=== PATIENT | female | born 1965 | race Caucasian/White ===

== ENCOUNTER 2021-08-10 15:47 | Emergency (ER) | payer OTHER, SELFPAY ==
--- NOTE | ~2021-08-10 | XR_ITS ---
EXAMINATION: XR finger 4th RT min 2V DATE: 08/10/2021 16:34 INDICATION: Right hand fourth digit deformity. TECHNIQUE: 4 views of right hand fourth digit were obtained. COMPARISON: None. FINDINGS: There is flexion of the fourth proximal and distal interphalangeal joints. No fracture. Ost eopenia is noted. Joint spaces are normal. IMPRESSION: 1. Flexion of fourth proximal and distal interphalangeal joints. No fracture. 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
[2021-08-10 15:55] VITALS: BP 119/83; PULSE 95; RESP 16; TEMP 36.9; O2SAT 100
--- NOTE | 2021-08-10 16:02 | ED.UPPEXIN ---
HPI - Extremity Injury (Upper) General Chief Complaint: Extremity Injury, Upper Stated Complaint: Right Finger Injury Time Seen by Provider: 08/10/21 16:10 Source: patient and RN notes reviewed Mode of arrival: ambulatory Limitations: no limitations History of Present Illness HPI narrative: 56-year-old female with history of RA presents concern with the fourth digit of the right hand. Reports the finger is in a bent position and is painful. She denies injury or trauma. Reports history of fingers dislocating . Denies intervention. MD complaint: injury to: right and finger Related Data Home Medications Medication Instructions Recorded Confirmed albuterol sulfate 2 puff INHALATION Q4-6H PRN 08/10/21 08/10/21 albuterol sulfate See Rx Instructions .ROUTE 08/10/21 08/10/21 .COMPLEX PRN amitriptyline 50 mg PO DAILY 08/10/21 08/10/21 budesonide-formoterol [Symbicort] 2 inh INHALATION BID 08/10/21 08/10/21 meloxicam 15 mg PO DAILY 08/10/21 08/10/21 omeprazole 20 mg PO DAILY 08/10/21 08/10/21 ropinirole 0.5 mg PO DAILY 08/10/21 08/10/21 Allergies Allergy/AdvReac Type Severity Reaction Status Date / Time Iodinated Contrast Media Allergy Unknown Unknown Verified 08/10/21 16:11 Penicillins Allergy Unknown Unknown Verified 08/10/21 16:11 Contrast Media Allergy Unknown Unknown Uncoded 08/10/21 16:11 Review of Systems Review of Systems: CONSTITUTIONAL: Denies malaise, chills, sweats, or fever. SKIN: Denies rash or itching, bruising, swelling, redness, warmth MUSCULOSKELETAL: Reports deformity, pain to the fourth digit of the right hand NEUROLOGIC: Denies numbness, weakness All systems reviewed & are unremarkable except as noted in HPI and below PMFSH Family History Family History (Updated 05/24/14 @ 07:13 by DOCTOR UNKNOWN) Mother Family history of pancreatic disease Family history of heart disease in male family member before age 55 Father Hypertension Family history of malignant neoplasm Family history of heart disease in male family member before age 55 Other Carcinoma of colon Cerebrovascular accident Diabetes mellitus Social History Social History Smoking status: Never smoker Alcohol intake: never Comments At time of signature, agree with nursing past medical, surgical, social and family history. There is no relevant family history pertinent to the presenting complaint Exam Narrative: GENERAL: Well-appearing, well-nourished, and in no acute distress. HEAD: Normocephalic EYES: PERRLA, conjunctivae clear NECK: Supple. CHEST: Speaks in full sentences. No respiratory distress. HEART: Regular rate and rhythm. Normal and equal peripheral pulses. EXTREMITIES: Fourth digit of right hand has normal sensation. 5Range of motion limited, finger in a bent position. No clubbing, cyanosis, or edema noted. General digit tenderness. Skin intact. Good capillary refill and radial pulse. Distal capillary refill less than 3 seconds. SKIN: Warn, dry, intact, pink. No rash NEURO: Alert and oriented x3. PSYCH: Normal mood and affect Course Course Emergency Course: Patient is aware of diagnosis, understands and agrees to treatment plan. Anticipatory guidance given. Patient agrees to follow-up as directed and is aware of reasons to seek care at the emergency department. Portions of this record may have been created with voice recognition software Vital Signs Vital signs: Reviewed. MDM - Extremity Injury (Upper) MDM Narrative Medical decision making narrative: Patients injury and pain is consistent with musculoskeletal etiology. No signs of neurological or vascular compromise on exam. Compartments and tissues are soft without signs of compartment syndrome. Pain is felt appropriate for further evaluation on an outpatient basis. Imaging Data My impression: Images reviewed, interpreted by radiologist, agree, see report. Critical Care Time Critical Care Time Critical Care Time: No Discharge Plan Discharge
[2021-08-10] MEDS: KETOROLAC (*BKC) 60 MG/2 ML VIAL IM (16:42)
== END 2021-08-10 17:06 | disposition home or self-care (01) ==
PROVIDERS: Emergency Provider Nurse Practitioner; PCP Internal Medicine
DX: M65.341 Trigger finger, right ring finger (principal); I10 Essential (primary) hypertension; J45.909 Unspecified asthma, uncomplicated; Z85.42 Personal history of malignant neoplasm of other parts of uterus
CPT/HCPCS: 73140; 96372; 99203; G0463; J1885

== ENCOUNTER 2024-08-14 17:02 | Emergency (ER) | payer OTHER, SELFPAY ==
[2024-08-14 17:12] VITALS: BP 156/116; PULSE 108; RESP 20; TEMP 36.6; O2SAT 100
--- NOTE | 2024-08-14 18:25 | ED_ITS ---
HPI - Skin/Abscess/Foreign Bdy General Chief complaint: Skin/Abscess/Foreign Body Stated complaint: Skin Sore/Congestion Source: patient, RN notes reviewed and old records reviewed Mode of arrival: ambulatory Limitations: no limitations History of Present Illness HPI narrative: 59 year old female who presents to [facility] care with complains of sores in her nose for he past several weeks with increased sinus congestion and facial sinus pressure with frontal headache.Patient reports that she has been putting Neosporin in her nares and has been using flonase nasal spray without improvement. Patient also reports that she has red spot above her left eyebrow that is itchy. MD complaint: rash (above right eyebrow dry skin, nasal sores , sinus congestion, sinus presssure and headache) Onset (ago): week(s) (several weeks) Location: face (nasal) Severity: moderate Quality: aching Treatments prior to arrival: other (flonase and neosporin) Related Data Allergies Allergy/AdvReac Type Severity Reaction Status Date / Time Iodinated Contrast Media Allergy Unknown Unknown Verified 08/10/21 16:11 Penicillins Allergy Unknown Unknown Verified 08/10/21 16:11 Contrast Media Allergy Unknown Unknown Uncoded 08/10/21 16:11 Review of Systems Review of Systems: CONSTITUTIONAL: Denies fever, chills, or sweats. reports sinus pressure CARDIOVASCULAR: Denies chest pain, palpitations, or edema. RESPIRATORY: Denies cough or dyspnea. SKIN: Reports irritation to bilateral nares and lesions and small scaly red area above left eyebrow MUSCULOSKELETAL: Denies joint pain or myalgia. NEUROLOGIC: Reports headache,no numbness, or weakness. All systems reviewed & are unremarkable except as noted in HPI and below [facility] Family History Family History (Updated 05/24/14 @ 07:13 by DOCTOR UNKNOWN) Mother Family history of pancreatic disease Family history of heart disease in male family member before age 55 Father Hypertension Family history of malignant neoplasm Family history of heart disease in male family member before age 55 Other Carcinoma of colon Cerebrovascular accident Diabetes mellitus Social History Social History (Updated 08/15/24 @ 21:15 by Laverne Reich NP) Smoking status: Current every day smoker Tobacco type: e-cigarettes/vaping Alcohol intake: never Comments At time of signature, agree with nursing past medical, surgical, social and family history. There is no relevant family history pertinent to the presenting complaint Exam Narrative: GENERAL: Well-appearing, well-nourished, and in no acute distress. HEAD: Normocephalic, atraumatic. EYES: PERRLA, conjunctivae clear, and EOMI. ENT: Mucous membranes moist. Oropharynx without edema, erythema or lesions. nasal lesions irritated, with sinus pressure and frontal headache, post nasal drainage noted NECK: Supple. No lymphadenopathy CHEST: Clear to auscultation. No respiratory distress.no cough noted SAO2 100% on room air HEART: Regular rate and rhythm. SKIN: Warm, dry.? Patch of erythema scaly skin to area above left eye brow. NEURO:? Alert and oriented x3. PSYCH: Normal mood and affect Course Course Emergency Course: Patient is aware of diagnosis, understands and agrees to treatment plan.? Anticipatory guidance given.? Patient agrees to follow-up as directed and is aware of reasons to seek care at the emergency department. Portions of this record may have been created with voice recognition software Level of Care: Express Care Visit Vital Signs Vital signs: Vital Signs Temperature 36.6 C 08/14/24 17:12 Pulse Rate 108 H 08/14/24 17:12 Respiratory Rate 20 08/14/24 17:12 Blood Pressure 156/116 H 08/14/24 17:12 Pulse Oximetry 100 08/14/24 17:12 Oxygen Delivery Room Air 08/14/24 17:12 Temperature 36.6 C 08/14/24 17:12 Pulse Rate 108 H 08/14/24 17:12 Respiratory Rate 20 08/14/24 17:12 Blood Pressure 156/116 H 08/14/24 17:12 Pulse Oximetry 100 08/14/24 17:12 Oxygen Delivery Room Air 08/14/24 17:12 Reviewed MDM - Skin/Abscess/Foreign Bdy MDM Narrative Medical decision making narrative: Does not appear at this time to be erythema multiforme, bullous, SJS, TEN; no evidence at this time to suggest RMSF, endocarditis or Lyme disease; patient looks well, nontoxic and is tolerating oral intake; no neurologic signs or symptoms; positive for headache,no photophobia or neck pain; afebrile; appropriate for initial outpatient treatment; discussed the importance of follow-up, patient agrees; question, viral exanthema, contact dermatitis, allergic dermatitis, eczema, urticaria.. No soft palate or uvula edema, no tongue, lip edema or other mucosal involvement, no respiratory compromise, no stridor, no wheezing, no wheezing, no history of syncope, no hypotension, no nausea, vomiting, or diarrhea.? Instructed patient to go to nearest ER immediately for any worsening symptoms including but not limited to: fever, spreading rash, pain, sore throat, headache, dizziness, chest pain, trouble breathing, or any symptoms concerning to the patient. Differential Diagnosis Differential diagnosis: Likely eczema and other (nasal sores, sinusitis, headache, sinus congestion with drainage) Medical Records Attestation: I reviewed the patient's medical records. Critical Care Time Critical Care Time Critical Care Time: No Discharge Plan Discharge Clinical Impression: Sinusitis, acute, Internal nasal lesion, Eczema Patient Disposition: Home, Self-Care Condition: Stable Instructions: Antibiotic Form, Sinusitis (ED) Additional Instructions: Increase fluids especially juices and water Beor-hji-ovzraci cough and cold medicine of your choice for your symptoms Tylenol and or Ibuprofen for any fevers or pain Mupiricin ointment to bilateral nares 2 x daily heat to the face 20-30 minutes 4-6 times a day for pain Salt water gargles, throat lozenges or throat sprays as desired Antibiotic as directed--finish the medication If your symptoms persist, change or worsen significantly before you can contact your personal physician then please, without delay, go to the emergency department for further evaluation. Follow-up with PCP in 7-10 days or sooner if needed Follow up with PCP soon in regards to your blood pressure which is elevated above threshold for referral. Blood pressure above 120/80 may indicate pre- hypertension. Patient recommended to follow-up with PCP once she has completed oral antibiotics she needs to call in the morning for appointment Prescriptions: New mupirocin 2 % ointment 1 applic topical BID Qty: 22 0RF Rx Instructions: Inside nares clindamycin HCl 300 mg capsule 300 mg PO Q8H Qty: 30 0RF Rx Instructions: take all doses with food Follow-up/Referrals: UNKNOWN,DOCTOR [Primary Care Provider] - Time of Disposition: 18:37 Quality [place] Coma Scale Eyes: Open Verbal: Oriented and Alert Motor: Follows Commands Li Coma Total Score: 15
== END 2024-08-14 18:46 | disposition home or self-care (01) ==
PROVIDERS: Emergency Provider Registered Nurse
DX: J01.90 Acute sinusitis, unspecified (principal); J34.89 Other specified disorders of nose and nasal sinuses; L30.9 Dermatitis, unspecified; F17.290 Nicotine dependence, other tobacco product, uncomplicated
CPT/HCPCS: 99213; G0463